=== PATIENT | female | born 1975 | race Caucasian/White ===

== ENCOUNTER 2022-01-13 12:04 | Emergency (ER) | payer OTHER, SELFPAY ==
[2022-01-13 12:28] VITALS: BP 112/74; PULSE 97; RESP 18; TEMP 37.3; O2SAT 99; BMI 25.4
--- NOTE | 2022-01-13 13:26 | ED.FEVER ---
HPI - Fever General Time Seen by Provider: 13:20 Date Seen: 01/13/22 Chief Complaint: Fever Stated Complaint: Possible dehydration Time Seen by Provider: 01/13/22 12:55 Source: patient Mode of arrival: ambulatory Limitations: no limitations History of Present Illness HPI Narrative: Darcy is a very pleasant 46-year-old female previously healthy who comes to the emergency room for fever back pain and diarrhea. Patient had the onset of a fever with a headache on Monday night January 11. She had also noticed some low back pain that she thought was related to work. She states that they have been lifting some heavy items lately but she does not usually have back pain. She now notes that she has had ongoing diarrhea since that time without vomiting. She denies nausea but states that she does not have much of an appetite. She denies a sore throat or cough initially but later states she has a slight cough. She is vaccinated but not boosted with her COVID vaccinations. She denies shortness of breath or chest pain. She has not been traveling of late, used any antibiotics, or eaten uncooked food. She notes that she is not urinating as much as normal. She denies pain with urination MD elicited complaint: fever Onset (ago): day(s) Exacerbating factors: nothing Relieving factors: nothing Associated symptoms: chills, headache and back/flank pain Treatments prior to arrival fever: none Related Data Home Medications Medication Instructions Recorded Confirmed No Known Home Medications 01/13/22 01/13/22 Allergies Allergy/AdvReac Type Severity Reaction Status Date / Time dicloxacillin Allergy Severe Anaphylaxis Verified 01/13/22 12:38 levofloxacin Allergy Intermediate Palpitation Verified 01/13/22 12:38 s Review of Systems Status of ROS Reports: 10 or more systems reviewed and unremarkable except as noted in History and below Narrative Patient denies vomiting, significant cough, sore throat, blood in her stool Const Reports: fever and fatigue Resp Reports: cough (Very mild) GI Reports: diarrhea Reports: decreased urine ouput Musculo Reports: back pain Neuro Reports: headache (Initially but now resolved) Endo Reports: fatigue PFSH PFSH Social History Smoking Status: Never smoker Do you use any of these nicotine containing products: None Second hand tobacco smoke exposure: No How often do you have a drink containing alcohol: never How often do you have six or more drinks on one occasion: Never AUDIT-C Alcohol total score: 0 Non-prescribed substance use: denies use Exam Const Vital Signs, click to edit/add: Vital Signs - 24 hr 01/13/22 12:28 01/13/22 17:05 Temperature 99.2 F Pulse Rate 86 Pulse Rate [Pulse Oximeter] 97 Respiratory Rate 18 18 Blood Pressure 109/65 Blood Pressure [Right Upper Arm] 112/74 Pulse Oximetry 99 Documenting provider has reviewed patient's vital signs: yes Common normals: no apparent distress and oriented x3 General appearance: cooperative and other (Prefers position) Orientation/consciousness: Yes awake, Yes oriented to person, Yes oriented to place and Yes oriented to time HENMT Common normals: normocephalic and hearing grossly normal bilaterally Head and scalp: normocephalic Face and sinus: normal facial exam and sinuses nontender Mouth: oral and palatal mucosa normal Throat: posterior oropharynx normal Eye Common normals: PERRL and conjunctivae normal General eye: normal appearance of both eyes Conjunctiva: conjunctiva(e) normal Pupil: PERRL Neck & C-Spine Common normals: full ROM, no lymphadenopathy and supple Cervical spine: cervical ROM normal Lymph Lymphatic: no lymphadenopathy noted Resp Common normals: normal respiratory effort and clear to auscultation bilaterally Effort & inspection: able to speak in complete sentences Auscultation: clear to auscultation bilaterally Cardio Common normals: regular rate and regular rhythm Rate: regular rate Rhythm: regular rhythm GI Common normals: Normal to inspection, nondistended, normoactive bowel sounds present Inspection: normal to inspection Other: Abdomen was soft and nontender with the exception of suprapubic area. No pain with straight leg raise or internal external rotation at the hip. No rebound tenderness. Common normals: no CVA tenderness Bladder/kidney exam: no CVA tenderness Back & Pelvis Common normals: no CVA tenderness Extremity Common normals: normal to inspection Neuro Common normals: oriented x3 and moves all extremities Sensorium/orientation: awake, oriented to person, oriented to place and oriented to time Skin Common normals: no rashes or lesions noted General skin exam: no rashes or lesions noted Course Course Hospital Course: At this time differential diagnosis includes but is not limited to colitis, pyelonephritis, enteritis, viral syndrome, COVID, diverticulitis. Reevaluation(s) Reevaluation #1: Patient has unfortunately had her IV infiltrate but she did receive greater than 500 mL of saline. Declined the morphine and Zofran that we had spoken about. Instead she is receptive to taking acetaminophen at this time. We spoke about her labs which include a normal white count but elevated CRP to 3.7. Her lipase and amylase are normal. Her vital signs are very reassuring at this time. Patient did have COVID x2 most recently in November. Did not retest for COVID today. I believe patient is experiencing a viral colitis. She reports no recent travel, food intake that is concerning or antibiotic use. Abdomen is soft with only mild tenderness in the suprapubic area. There is no evidence of UTI, blood in the stool or vomiting during her stay here. I spoke with an in regards to further testing. With reassuring white count, but discomfort and self-reported fever, we did discuss CT. We spoke about the risk of radiation and cost verses going forward with CT. She states that she has a high deductible in she is worried. At this time her abdominal exam is fairly reassuring as is her white count. I do think that the risk of CT outweighs benefits at this point but would not hesitate to order CT if she has continued ongoing symptoms or worsening symptoms. If she develops blood in her stool, worsening or onset of new symptoms, increasing abdominal pain I would ask that she return to the emergency for further evaluation. She agrees with this plan. . No evidence appendicitis with negative abdominal exam, straight leg raise. No focal tenderness except for some mild discomfort in the suprapubic area without evidence of mass. Again, white count reassuring. This appears to be more of an inflammatory process rather than a localized infectious process based on today's ED visit. She feels comfortable with this plan. Time: 16:00 Vital Signs Vital signs: Initial Vital Signs Temperature 99.2 F 01/13/22 12:28 Temperature Source Oral 01/13/22 12:28 Pulse Rate 97 01/13/22 12:28 Pulse Rhythm 01/13/22 12:28 Respiratory Rate 18 01/13/22 12:28 Blood Pressure 112/74 01/13/22 12:28 Blood Pressure Mean 86 01/13/22 12:28 Blood Pressure Position Sitting 01/13/22 12:28 Pulse Oximetry 99 01/13/22 12:28 Oxygen Delivery Method 01/13/22 12:28 Vital Signs Temperature 99.2 F 01/13/22 12:28 Pulse Rate 97 01/13/22 12:28 Respiratory Rate 18 01/13/22 12:28 Blood Pressure 112/74 01/13/22 12:28 Pulse Oximetry 99 01/13/22 12:28 Temperature 99.2 F 01/13/22 12:28 Pulse Rate 86 01/13/22 17:05 Respiratory Rate 18 01/13/22 17:05 Blood Pressure 109/65 01/13/22 17:05 Pulse Oximetry 99 01/13/22 12:28 MDM - Fever MDM Narrative Medical decision making narrative: At this time patient will be discharged home. She does promise to return to the emergency room for continued or worsening symptoms. We do speak of using small amount of Vicodin to help with headache and discomfort but she declines. She also declines Zofran. She will use Tylenol or ibuprofen as needed at home. She has no meningeal signs at this time. Differential Diagnosis Differential diagnosis: Likely gastroenteritis and pyelonephritis Medical Records Attestation: I reviewed the patient's medical records. Lab Data Attestation: I reviewed the patient's lab results. Labs: Lab Results 01/13/22 01/13/22 01/13/22 Range/Units 14:02 14:02 14:02 WBC 9.47 (4.50-11.00) K/uL RBC 4.23 (4.00-5.20) m/uL Hgb 11.6 L (12.0-16.0) gm/dL Hct 36.2 (33.0-51.0) % MCV 86 (80-100) fL MCH 27 (26-34) pg MCHC 32 (32-36) gm/dL RDW Coeff of Caesar 13.7 (11.5-15.5) % Plt Count 330 (140-440) K/uL Neut % (Auto) 88.2 H (42.0-72.0) % Lymph % (Auto) 4.8 L (20-44) % Reagan % (Auto) 6.1 (0.0-11.0) % Eos % (Auto) 0.0 (0.0-7.0) % Baso % (Auto) 0.2 (0.0-3.0) % Neut # (Auto) 8.40 H (1.7-7.0) K/uL Lymph # (Auto) 0.50 L (0.90-2.90) K/uL Reagan # (Auto) 0.60 (0.00-0.90) K/UL Eos # (Auto) 0.00 (0.00-0.50) K/uL Baso # (Auto) 0.02 (0.00-0.30) K/uL Abs Immat Gran (auto) 0.07 (0.00-0.30) K/uL Sodium 133 L (135-149) mmol/L Potassium 3.8 (3.6-5.1) mmol/L Chloride 104 (96-114) mmol/L Carbon Dioxide 26 (20-32) mmol/L BUN 8 (5-24) mg/dL Creatinine 0.7 (0.5-1.5) mg/dL Estimated Creat Clear 91.32 Glucose 95 (60-115) mg/dL Calcium 8.1 L (8.4-10.6) mg/dL Total Bilirubin 0.3 (0.1-1.5) mg/dL AST 21 (12-35) U/L ALT 12 (4-35) U/L Alkaline Phosphatase 60 (40-150) U/L C-Reactive Protein 3.7 H (0.5-1.0) mg/dL Total Protein 6.0 (6.0-8.3) g/dL Albumin 3.6 (3.3-5.0) g/dL Amylase (18-89) U/L Lipase 90 (23-300) U/L Urine Color Yellow (Yellow) Urine Appearance Clear (Clear) Urine pH 5.5 (5.0-8.5) Ur Specific Canyon <= 1.005 (1.000-1.030) Urine Protein Negative (Negative) Urine Glucose (UA) Negative (Negative) Urine Ketones Negative (Negative) Urine Blood 1+ A (Negative) Urine Nitrite Negative (Negative) Urine Bilirubin Negative (Negative) Urine Urobilinogen 0.2 (0.2-1.0) Ur Leukocyte Esterase Negative (Negative) Urine RBC 0-2 (0-2) Urine WBC 0-2 (0-5) Ur Squamous Epith Cells None (None-Few) Urine Bacteria None (None) 06/30/22 Range/Units 14:02 WBC (4.50-11.00) K/uL RBC (4.00-5.20) m/uL Hgb (12.0-16.0) gm/dL Hct (33.0-51.0) % MCV (80-100) fL MCH (26-34) pg MCHC (32-36) gm/dL RDW Coeff of Caesar (11.5-15.5) % Plt Count (140-440) K/uL Neut % (Auto) (42.0-72.0) % Lymph % (Auto) (20-44) % Reagan % (Auto) (0.0-11.0) % Eos % (Auto) (0.0-7.0) % Baso % (Auto) (0.0-3.0) % Neut # (Auto) (1.7-7.0) K/uL Lymph # (Auto) (0.90-2.90) K/uL Reagan # (Auto) (0.00-0.90) K/UL Eos # (Auto) (0.00-0.50) K/uL Baso # (Auto) (0.00-0.30) K/uL Abs Immat Gran (auto) (0.00-0.30) K/uL Sodium (135-149) mmol/L Potassium (3.6-5.1) mmol/L Chloride (96-114) mmol/L Carbon Dioxide (20-32) mmol/L BUN (5-24) mg/dL Creatinine (0.5-1.5) mg/dL Estimated Creat Clear Glucose (60-115) mg/dL Calcium (8.4-10.6) mg/dL Total Bilirubin (0.1-1.5) mg/dL AST (12-35) U/L ALT (4-35) U/L Alkaline Phosphatase (40-150) U/L C-Reactive Protein (0.5-1.0) mg/dL Total Protein (6.0-8.3) g/dL Albumin (3.3-5.0) g/dL Amylase 67 (18-89) U/L Lipase (23-300) U/L Urine Color (Yellow) Urine Appearance (Clear) Urine pH (5.0-8.5) Ur Specific [place] (1.000-1.030) Urine Protein (Negative) Urine Glucose (UA) (Negative) Urine Ketones (Negative) Urine Blood (Negative) Urine Nitrite (Negative) Urine Bilirubin (Negative) Urine Urobilinogen (0.2-1.0) Ur Leukocyte Esterase (Negative) Urine RBC (0-2) Urine WBC (0-5) Ur Squamous Epith Cells (None-Few) Urine Bacteria (None) Discharge Plan Discharge Clinical Impression: Diarrhea, Viral illness Patient Disposition: Home, Self-Care Condition: Improved Additional Instructions: Return to the emergency room if you have ongoing symptoms that are not improving in the next 24 hours. Seek medical attention as soon as possible if you develop blood in your stool, worsening abdominal pain, onset of new symptoms and as needed. Keep well hydrated by pushing fluids. Activity Level: No Restrictions Activity Detail: Off work today and tomorrow Discharge Diet: Clear Liquid Diet Detail: Avoid dairy products at this time. Prescriptions: No Action No Known Home Medications 0RF Follow Up/Referrals: Emanule Braswell MD [Primary Care Provider] - Stand Alone Forms: [employer] Info Instructions
--- NOTE | 2022-01-13 13:37 | ED.NURSE ---
O2 titrated down to 2L. Pt breathing easy and unlabored.
[2022-01-13] MEDS: 0.9 % SODIUM CHLORIDE 1000 ml 1,000 ML IV (14:03)
[2022-01-13 15:09] LABS: Appearance Urine Clear (Clear); Bilirubin Urine Negative (Negative); Blood Urine 1+ (Negative); Color Urine Yellow (Yellow); Glucose Urine Negative (Negative); Ketones Urine Negative (Negative); Leukocyte Esterase Urine Negative (Negative); Nitrite Urine Negative (Negative); Protein Urine Negative (Negative); Specific Gravity Urine <= 1.005 (1.000-1.030); Urobilinogen Urine 0.2 (0.2-1.0); pH Urine 5.5 (5.0-8.5)
[2022-01-13 15:29] LABS: Albumin* 3.6 g/dL (3.3-5.0); Chloride* 104 mmol/L (96-114)
[2022-01-13 15:30] LABS: Potassium* 3.8 mmol/L (3.6-5.1); Sodium* 133 mmol/L (135-149)
[2022-01-13 15:32] LABS: Alanine Aminotransferase* 12 U/L (4-35); Alkaline Phosphatase* 60 U/L (40-150); Aspartate Amino Transferase* 21 U/L (12-35); Bilirubin Total* 0.3 mg/dL (0.1-1.5); Blood Urea Nitrogen* 8 mg/dL (5-24); Carbon Dioxide* 26 mmol/L (20-32); Creatinine* 0.7 mg/dL (0.5-1.5); Est. Creatinine Clearance* 91.32; Estimated Glomerular Filt Rate 108.62; Lipase* 90 U/L (23-300)
[2022-01-13 15:33] LABS: Calcium* 8.1 mg/dL (8.4-10.6); Glucose* 95 mg/dL (60-115)
[2022-01-13 15:35] LABS: C Reactive Protein* 3.7 mg/dL (0.5-1.0)
[2022-01-13 15:38] LABS: RBC Urine 0-2 (0-2)
[2022-01-13 15:39] LABS: WBC Urine 0-2 (0-5)
--- NOTE | 2022-01-13 15:45 | ED.NURSE ---
IV infiltrated - site is edematous and cool to touch. CMS is intact. Pt reports mild discomfort. IV removed, catheter intact. Site wrapped w/ coban. Pt reports some improvement. Does c/o headache. MD updated and aware.
[2022-01-13 15:53] LABS: Basophils Absolute Auto 0.02 K/uL (0.00-0.30); Basophils Percent Auto 0.2 % (0.0-3.0); Hematocrit 36.2 % (33.0-51.0); Hemoglobin* 11.6 gm/dL (12.0-16.0); Immature Granulocytes Abs Auto 0.07 K/uL (0.00-0.30); Lymphocytes Percent Auto 4.8 % (20-44); Mean Corpuscular HGB Conc 32 gm/dL (32-36); Mean Corpuscular Hemoglobin 27 pg (26-34); Mean Corpuscular Volume 86 fL (80-100); Monocytes Percent Auto 6.1 % (0.0-11.0); Neutrophils Percent Auto 88.2 % (42.0-72.0); Platelet Count* 330 K/uL (140-440); RDW Coefficient of Variation % 13.7 % (11.5-15.5); Red Blood Count 4.23 m/uL (4.00-5.20); White Blood Count* 9.47 K/uL (4.50-11.00)
[2022-01-13 16:14] LABS: Amylase* 67 U/L (18-89)
[2022-01-13 16:15] LABS: Slide Review Reflex No
[2022-01-13] MEDS: ACETAMINOPHEN 500 MG TABLET 1000 MG PO (16:26)
[2022-01-13 17:05] VITALS: BP 109/65; PULSE 86; RESP 18
== END 2022-01-13 17:08 | disposition home or self-care (01) ==
PROVIDERS: Emergency Provider Family Medicine; PCP Family Medicine
DX: R19.7 Diarrhea, unspecified (principal); R50.9 Fever, unspecified
CPT/HCPCS: 36415; 80053; 81001; 81003; 82150; 83690; 85025; 86140; 87040; 87502; 87635; 99283; 99284; A9270; J7030